=== PATIENT | female | born 1975 | race Caucasian/White ===

== ENCOUNTER 2017-12-29 17:14 | Emergency (ER) | payer SELFPAY ==
--- NOTE | 2017-12-29 17:23 | PDOC ---
Rapid Medical Evaluation Chief Complaint: Vaginal Bleeding Time Seen by Provider: 12/29/17 17:20 Medical Evaluation: Allergies Allergy/AdvReac Type Severity Reaction Status Date / Time No Known Allergies Allergy Verified 12/29/17 17:19 12/29/17 17:20 The patient presents with a chief complaint of: Vaginal bleeding and abdominal pain. 8 weeks . Bleeding started one hour ago. States the bleeding is light. States missed her afternoon bp meds. I have performed a brief in-person evaluation of this patient; Pertinent physical exam findings: ambulatory, in no respiratory distress. BP 170 /107 I have ordered the following: CBC, Type and screen UA, UC, beta hcg, transvaginal us The patient will proceed to the ED for further evaluation. 12/29/17 17:22
[2017-12-29 17:24] VITALS: BP 164/103; PULSE 85; TEMP 98.3; BMI 30.2
[2017-12-29 17:57] LABS: BASO % 0.3 % (0-2.0); EOS % 0.9 % (0-4.5); HEMATOCRIT 30.8 % (32.4-45.2); HEMOGLOBIN 9.9 GM/dL (10.7-15.3); LYMPH % 15.9 % (8-40); MCH 21.2 pg (25.7-33.7); MEAN CELL VOLUME 66.3 fl (80-96); MEAN PLT VOLUME 8.7 fl (7.5-11.1); MONO % 7.2 % (3.8-10.2); NEUT % 75.7 % (42.8-82.8); PLATELET COUNT 348 K/MM3 (134-434); RBC 4.65 M/mm3 (3.60-5.2); RDW 22.5 % (11.6-15.6); WHITE BLOOD COUNT 10.3 K/mm3 (4.0-10.0)
[2017-12-29 18:04] LABS: URINE APPEARANCE CLEAR; URINE BILIRUBIN NEGATIVE (<2.0 mg/dL); URINE BLOOD 3+ (NEGATIVE); URINE COLOR STRAW; URINE GLUCOSE (UA) NEGATIVE (NEGATIVE); URINE KETONE NEGATIVE (NEGATIVE); URINE LEUK ESTERASE NEGATIVE (NEGATIVE); URINE NITRITE NEGATIVE (NEGATIVE); URINE PROTEIN NEGATIVE (NEGATIVE); URINE UROBILINOGEN NEGATIVE mg/dL (0.2-1.0)
[2017-12-29 18:05] LABS: ADD RBC MORPHOLOGY YES
[2017-12-29 18:28] LABS: EPI CELLS RARE /HPF (FEW); URINE BACTERIA RARE /hpf (NONE SEEN)
[2017-12-29 18:51] LABS: ANISOCYTOSIS 2+
--- NOTE | 2017-12-29 20:32 | PDOC ---
History of Present Illness - General Chief Complaint: Vaginal Bleeding Stated Complaint: Vaginal Bleeding 2 MONTHS PREGNAT Time Seen by Provider: 12/29/17 17:20 History Source: Patient Exam Limitations: No Limitations - History of Present Illness Travel History: No Initial Comments: 12/29/17 20:50 Best Contact:[phone] Pmhx: HTN Pshx:N/A Allergies:NKDA 42-year-old female presents to the emergency department complaining of scant vaginal bleed with suprapubic cramping 3 days without fever, chills, nausea/vomiting, chest pain, shortness of breath, flank pain, abdominal discomfort, urinary symptoms: Frequency/urgency/hesitancy, hematuria. Patient states the cramping is described as 4/10 nonradiating intermittent cramping which is alleviated with Tylenol and there are no exacerbating factors. Patient states she is approximately 8 weeks gestation. LMP: 10/28/2017. Patient has not had an ultrasound for this nor has she seen care. Timing/Duration: reports: intermittent Past History - Past Medical History Allergies/Adverse Reactions: Allergies Allergy/AdvReac Type Severity Reaction Status Date / Time No Known Allergies Allergy Verified 12/29/17 17:19 COPD: No HTN: Yes - Suicide/Smoking/Psychosocial Hx Smoking History: Never smoked Have you smoked in the past 12 months: No Information on smoking cessation initiated: No Hx Alcohol Use: No Drug/Substance Use Hx: No Substance Use Type: None Review of Systems - Review of Systems Able to Perform ROS?: Yes Comments:: 12/29/17 20:53 CONSTITUTIONAL: Absent: fever, chills, diaphoresis, generalized weakness, malaise, loss of appetite HEENT: Absent: rhinorrhea, nasal congestion, throat pain, throat swelling, difficulty swallowing, mouth swelling, ear pain, eye pain, visual Changes CARDIOVASCULAR: Absent: chest pain, loss of consciousness, palpitations, irregular heart rate, peripheral edema RESPIRATORY: Absent: cough, shortness of breath, dyspnea with exertion, orthopnea, wheezing, stridor, hemoptysis GASTROINTESTINAL: +suprapubic cramping Absent: abdominal pain, abdominal distension, nausea, vomiting, diarrhea, constipation, melena, hematochezia GENITOURINARY: Absent: dysuria, frequency, urgency, hesitancy, hematuria, flank pain, genital pain MUSCULOSKELETAL: Absent: myalgia, arthralgia, joint swelling SKIN: Absent: rash, itching, pallor Is the patient limited Faroese proficient: No *Physical Exam - Vital Signs Last Vital Signs Temp Pulse Resp BP Pulse Ox 98.3 F 85 18 164/103 100 12/29/17 17:19 12/29/17 17:19 12/29/17 17:19 12/29/17 17:19 12/29/17 17:19 - Physical Exam Comments: 12/29/17 20:54 GENERAL: Well developed, well nourished. Awake and alert. No acute distress. HEENT: Normocephalic, atraumatic. PERRLA, EOMI. No conjunctival pallor. Sclera are non- icteric. Moist mucous membranes. Oropharynx is clear. NECK: Supple. Full ROM. No JVD. Carotid pulses 2+ and symmetric, without bruits. No thyromegaly. No lymphadenopathy. CARDIOVASCULAR: Regular rate and rhythm. No murmurs, rubs, or gallops. Distal pulses are 2+ and symmetric. PULMONARY: No evidence of respiratory distress. Lungs clear to auscultation bilaterally. No wheezing, rales or rhonchi. ABDOMINAL: Soft. Non-tender. Non-distended. No rebound or guarding. No organomegaly. Normoactive bowel sounds. MUSCULOSKELETAL Normal range of motion at all joints. No bony deformities or tenderness. No CVA tenderness. EXTREMITIES: No cyanosis. No clubbing. No edema. No calf tenderness. SKIN: Warm and dry. Normal capillary refill. No rashes. No jaundice. Pelvic: External genitalia normal without lesions. Vaginal vault +scant blood Cervix is long and closed. ED Treatment Course - LABORATORY CBC & Chemistry Diagram: 12/29/17 17:33 - ADDITIONAL ORDERS Additional order review: Laboratory Results 12/29/17 12/29/17 12/29/17 17:52 17:33 17:33 Beta HCG, Quant 48473.2 Urine Color Straw Urine Appearance Clear Urine pH 7.0 Ur Specific [place] 1.006 Urine Protein Negative Urine Glucose (UA) Negative Urine Ketones Negative Urine Blood 3+ H Urine Nitrite Negative Urine Bilirubin Negative Urine Urobilinogen Negative Ur Leukocyte Esterase Negative Urine WBC (Auto) 1 Urine RBC (Auto) 3 Ur Epithelial Cells Rare Urine Bacteria Rare Blood Type O POSITIVE Antibody Screen Negative 12/29/17 17:33 RBC 4.65 MCV 66.3 L MCHC 32.0 RDW 22.5 H MPV 8.7 Neutrophils % 75.7 Lymphocytes % 15.9 Monocytes % 7.2 Eosinophils % 0.9 Basophils % 0.3 Progress Note - Progress Note Progress Note: Translation by Dinorah/Antelope 2030hrs;Spoke to Dr. Thompson. Who is aware of the patient's transvaginal ultrasound report. Suggests patient follow-up at [address] [place] [address] on Monday. Informed to discuss Cytotec 200 g 3 times a day 4 days. 2053hrs: Dr. Cheek aware patient is not interested in taking Cytotec. Suggests patient follow-up on Monday at [address] [place] [address]. Patient understands to follow-up on Monday/January 01. Patient adamantly refuses Cytotec. *DC/Admit/Observation/Transfer Diagnosis at time of Disposition: Threatened miscarriage - Discharge Dispostion Disposition: HOME Condition at time of disposition: Stable Admit: No - Referrals Referrals: Mercedes Polk MD [Staff Physician] - - Patient Instructions Printed Discharge Instructions: DI for Threatened Additional Instructions: As per our conversation in the ER tonight: As per Dr. Thompson/Lumber Puller airline reservation agent [phone], FOLLOW UP AT THE CLINIC [address] [place] [address]/ [facility] ON MONDAY JANUARY 01, 2018 for a follow up. Increase fluids Pelvic rest Return to the ER for severe/persistent/worsening symptoms Print Language: FAROESE - Post Discharge Activity
--- NOTE | 2017-12-29 20:47 | PDOC ---
*Physical Exam - Vital Signs Last Vital Signs Temp Pulse Resp BP Pulse Ox 98.3 F 85 18 164/103 100 12/29/17 17:19 12/29/17 17:19 12/29/17 17:19 12/29/17 17:19 12/29/17 17:19 ED Treatment Course - LABORATORY CBC & Chemistry Diagram: 12/29/17 17:33 - ADDITIONAL ORDERS Additional order review: Laboratory Results 12/29/17 12/29/17 12/29/17 17:52 17:33 17:33 Beta HCG, Quant 13964.2 Urine Color Straw Urine Appearance Clear Urine pH 7.0 Ur Specific [place] 1.006 Urine Protein Negative Urine Glucose (UA) Negative Urine Ketones Negative Urine Blood 3+ H Urine Nitrite Negative Urine Bilirubin Negative Urine Urobilinogen Negative Ur Leukocyte Esterase Negative Urine WBC (Auto) 1 Urine RBC (Auto) 3 Ur Epithelial Cells Rare Urine Bacteria Rare Blood Type O POSITIVE Antibody Screen Negative 12/29/17 17:33 RBC 4.65 MCV 66.3 L MCHC 32.0 RDW 22.5 H MPV 8.7 Neutrophils % 75.7 Lymphocytes % 15.9 Monocytes % 7.2 Eosinophils % 0.9 Basophils % 0.3 Medical Decision Making - Medical Decision Making 12/29/17 20:47 Pt seen by the Advanced Practice Provider under my direct supervision Ancillary studies reviewed I agree with plan as outlined by the Advanced Practice Provider SMITH Arroyo *DC/Admit/Observation/Transfer Diagnosis at time of Disposition: Threatened miscarriage - Discharge Dispostion Disposition: HOME Condition at time of disposition: Stable - Referrals Referrals: Mercedes Polk MD [Staff Physician] - - Patient Instructions Printed Discharge Instructions: DI for Threatened Additional Instructions: As per our conversation in the ER tonight: As per Dr. Thompson/Early Childhood Education Instructor clearing distribution clerk [phone], FOLLOW UP AT THE CLINIC [address] ON MONDAY JANUARY 01, 2018 for a follow up. Increase fluids Pelvic rest Return to the ER for severe/persistent/worsening symptoms - Post Discharge Activity
== END 2017-12-29 20:55 | disposition home or self-care (01) ==
LOC: JER 17:14
DX: O26.891 Other specified pregnancy related conditions, first trimester (principal); O20.0 Threatened abortion; Z3A.08 8 weeks gestation of pregnancy
CPT/HCPCS: 36415; 76817-TC; 81003; 81015; 84702; 85025; 86850; 86900; 86901; 87077; 87086; 99282-25

== ENCOUNTER 2018-01-02 12:16 | Day surgery (SDC) | payer OTHER ==
[2018-01-02 13:21] LABS: BASO % 0.4 % (0-2.0); EOS % 1.5 % (0-4.5); HEMATOCRIT 29.5 % (32.4-45.2); HEMOGLOBIN 9.2 GM/dL (10.7-15.3); LYMPH % 20.8 % (8-40); MCH 20.9 pg (25.7-33.7); MCHC 31.1 g/dl (32.0-36.0); MEAN CELL VOLUME 67.3 fl (80-96); MEAN PLT VOLUME 8.7 fl (7.5-11.1); MONO % 5.9 % (3.8-10.2); NEUT % 71.4 % (42.8-82.8); PLATELET COUNT 285 K/MM3 (134-434); RBC 4.38 M/mm3 (3.60-5.2); RDW 23.1 % (11.6-15.6); WHITE BLOOD COUNT 6.9 K/mm3 (4.0-10.0)
[2018-01-02 13:35] LABS: INR 1.04 (0.82-1.09); PROTHROMBIN TIME (PATIENT) 11.8 SEC (9.98-11.88)
[2018-01-02 13:55] VITALS: BMI 26.4
[2018-01-02 14:28] LABS: ALBUMIN 3.2 g/dl (3.4-5.0); ANION GAP 8 (8-16); BILIRUBIN,TOTAL 0.2 mg/dL (0.2-1.0); BLOOD UREA NITROGEN 10 mg/dL (7-18); CHLORIDE 106 mmol/L (98-107); CO2 25 mmol/L (21-32); CREATININE 0.4 mg/dL (0.55-1.02); GLUCOSE,RANDOM 84 mg/dL (74-106); POTASSIUM 3.7 mmol/L (3.5-5.1); SGOT/AST 21 U/L (15-37); SGPT/ALT 19 U/L (12-78); SODIUM 139 mmol/L (136-145); TOT PROT 6.6 g/dl (6.4-8.2)
[2018-01-02 14:43] LABS: ALK PHOS 83 U/L (45-117)
[2018-01-02] MEDS ORDERED: PROPOFOL 20 ML ONE (16:04)
[2018-01-02] MEDS ORDERED: MIDAZOLAM HCL 2 MG/2 ML SINGLE DOSE VIAL ONE (16:04)
[2018-01-02] MEDS ORDERED: LIDOCAINE HCL/PF 2% SDV 5ML VIAL ONE (16:06)
[2018-01-02] MEDS ORDERED: DEXAMETHASONE SOD PHOSPHATE 4 MG/1 ML VIAL ONE (17:08)
[2018-01-02] MEDS ORDERED: ONDANSETRON 4 MG/2 ML VIAL ONE (17:08)
[2018-01-02] MEDS ORDERED: ACETAMINOPHEN 325 MG TABLET (FP) PO PRN (17:19)
[2018-01-02] MEDS ORDERED: oxyCODONE HCL 5 MG TABLET PO PRN (17:19)
[2018-01-02] MEDS ORDERED: IBUPROFEN 400 MG TABLET (FP) PO PRN (17:19)
[2018-01-02] MEDS ORDERED: ONDANSETRON 4 MG/2 ML VIAL IVPUSH PRN (17:21)
[2018-01-02] MEDS ORDERED: PROMETHAZINE HCL 25 MG/1 ML VIAL IVPUSH PRN (17:27)
--- NOTE | 2018-01-02 17:27 | HP ---
Past Medical History - Primary Care Physician PCP:: Mercedes Polk - Admission Chief Complaint: 42 yrs . 10 weeks gestation admitted for suction d&C due to 12/29/17 sono 7.2 weeks iugsac, yolk sca, with dodie ploe , no evidence FHMotion. Q uant [facility] [address].2 , blood type O Pos History of Present Illness: pt went to ER on 12/29/17 due to cramps , severe , was diagnosed pregn with 7.2 weeks demise . she had minimal bleeding . she continues to have cramps, sometimes severe . Reservations Specialist hx , pa MH 28-30 days , regular cycle, x 4-5 days bleeding contraception none std none History Source: Patient Limitations to Obtaining History: No Limitations - Past Medical History CLERK GUIDE: No: Migraine Cardiovascular: Yes: HTN (rx Mtoprolol 50 mg po bid Nifedipine 60 eR 1 tab daily). No: Murmur Pulmonary: No: Asthma Gastrointestinal: No: Constipation, Gastritis, Hemorrhoids Renal/: No: UTI ...: 3 ...Para: 1 ...Term: 1 (04/29/2000 8'4' [facility] hosp) ...: 1 (18 primary c/section 28 weeks , 2'8" , due to HTN ) ...Spon : 1 (current pregn , demise missed ab ) ...LMP: 10/21/17 ... Weeks Gestation by Dates: 10 (7.6 weeks by sono ) Heme/Onc: Yes: Anemia (iron deff anemia) Infectious Disease: No: STD's - Past Surgical History Past Surgical History: Yes: (02/14/2006 NCB) Hx Myomectomy: No Hx Transabdominal Cerclage: No - Smoking History Smoking history: Never smoked Have you smoked in the past 12 months: No - Alcohol/Substance Use Hx Alcohol Use: No History of Substance Use: reports: None - Social History History of Recent Travel: No Home Medications - Allergies Allergies/Adverse Reactions: Allergies Allergy/AdvReac Type Severity Reaction Status Date / Time No Known Allergies Allergy Verified 12/29/17 17:19 - Home Medications Home Medications: Ambulatory Orders Ferrous Sulfate [Feosol] 325 mg PO DAILY 04/03/18 Metoprolol Tartrate 50 mg PO DAILY 01/02/18 Nifedipine [Procardia Xl] 30 mg PO DAILY 01/02/18 Physical Exam - Maternity Vital Signs: Vital Signs Temperature 98.6 F 01/02/18 13:46 Pulse Rate 70 01/02/18 13:46 Respiratory Rate 16 01/02/18 13:46 Blood Pressure 144/100 01/02/18 13:46 O2 Sat by Pulse Oximetry (%) 100 01/02/18 13:46 Constitutional: Yes: Well Nourished, No Distress, Pallor Eyes: Yes: WNL HENT: Yes: WNL, Normocephalic Neck: Yes: WNL, Trachea Midline Cardiovascular: Yes: WNL, Regular Rate and Rhythm Lungs: Clear to auscultation Breast(s): Yes: WNL. 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 No: Calf Tenderness Edema: No Integumentary: Yes: Incision (old pfannensteil scar) Deep Tendon Reflex Grade: Normal +2 ...Motor Strength: WNL Psychiatric: Yes: WNL - Labs Lab Results: CBC, BMP 01/02/18 12:37 01/02/18 12:37 Laboratory Tests 01/02/18 12:37 Blood Type O POSITIVE Antibody Screen Negative Problem List - Problems (1) Missed Code(s): O02.1 - MISSED (2) 10 weeks gestation of Code(s): Z3A.10 - 10 WEEKS GESTATION OF (3) Chronic hypertension affecting Code(s): O10.919 - UNSP PRE-EXISTING HTN COMP , UNSP TRIMESTER (4) Iron deficiency anemia due to dietary causes Code(s): D50.8 - OTHER IRON DEFICIENCY ANEMIAS (5) AMA (advanced maternal age) multigravida 35+ Code(s): O09.529 - SUPERVISION OF ELDERLY MULTIGRAVIDA, UNSPECIFIED TRIMESTER Assessment/Plan 42 yrs , 10 weeks gestation , demise, htn , anemia , admitted for d &C suction
[2018-01-02] MEDS ORDERED: LACTATED RINGERS SOLUTION 1,000 ML IV SCH (17:30)
--- NOTE | 2018-01-02 17:45 | OP ---
Operative Note - Note: Operative Date: 01/02/18 Pre-Operative Diagnosis: missed ab 10 weeks Operation: dilatation suction curettage Findings: ut av 6 weeks size, uterocervical length 10 cm cx dilated to #10.#9 canula used adnexa store leader Surgeon: Mercedes Polk Anesthesiologist/IN FILE OPERATOR: Juan Crespo Anesthesia: General Specimens Removed: uterine contents Estimated Blood Loss (mls): 100 Fluid Volume Replaced (mls): 700 (pitocin 20 units in IV ) Operative Report Dictated: Yes
[2018-01-02 19:08] VITALS: BP 136/92; PULSE 87; TEMP 98.8
--- NOTE | 2018-01-02 23:11 | OP ---
DATE OF OPERATION: 01/02/2018 PREOPERATIVE DIAGNOSIS: Missed at 10 weeks. POSTOPERATIVE DIAGNOSIS: Missed at 10 weeks. OPERATION: Dilation and suction curettage. SURGEON: Mercedes Polk MD ANESTHESIOLOGIST: Zak Martinez MD ANESTHESIA: General. FINDINGS: A 42-year-old 3, para 1-1-1-2 with a history of a previous section for labor and one normal delivery. LMP was on October 2017. On December 29, she was diagnosed with demise. Sonogram shows 7.1 gestational sac with a yolk sac and pole with absent heart. Patient continues to have cramps and minimal bleeding. She is taken for the dilatation and suction curettage. Incidentally, the patient has a chronic hypertension and also anemia. PROCEDURE: Patient is taken to the operating room table and general anesthesia was given. The lithotomy position was given. The perineum and vagina were painted with betadine, draped in the usual manner. Pelvic examination was done. The uterus was anteverted and 8 weeks' size. Cervix was posterior. Adnexa was not palpable. Weighted speculum was put in. Anterior lip of the cervix was held with a single-toothed tenaculum. The uterocervical length was 10 cm. Cervix was dilated up to number 10 dilator. Then number 9 curved cannula was used and intrauterine contents were aspirated out until no more contents could be suctioned out. Then the uterine cavity was curetted and a gritty sensation was felt. The uterine cavity was clean. Bleeding was minimal. The procedure was completed. Estimated blood loss was 100 mL. She was transferred to the recovery room in stable condition. She was given IV Pitocin during the procedure. Her blood type is O+. Marlyn [id number]
--- NOTE | 2018-01-03 13:18 | EKG ---
Test Reason : Blood Pressure : / mmHG Vent. Rate : 062 BPM Atrial Rate : 062 BPM P-R Int : 180 ms QRS Dur : 078 ms QT Int : 468 ms P-R-T Axes : 018 006 020 degrees QTc Int : 475 ms NORMAL SINUS RHYTHM NORMAL ECG NO PREVIOUS ECGS AVAILABLE Confirmed by NUVIA CALLES MD ([id number]) on 01/03/2018 1:18:07 PM Referred By: Mercedes Polk Confirmed By:NUVIA CALLES MD
--- NOTE | 2018-01-05 08:58 | PATH ---
Surgical Pathology Report Patient Name: CHANTE PEOPLES Med. Rec. #: [id number] /Age/Gender: 1975 (Age: 42) / F Account: [id number] Location: [facility] Taken: 01/02/2018 Received: 01/03/2018 Reported: 01/05/2018 Physicians: Mercedes Polk M.D. Specimen(s) Received UTERINE CONTENTS Clinical History Missed Final Diagnosis UTERINE CONTENTS, EVACUATION: CHORIONIC VILLI CONSISTENT WITH PRODUCTS OF CONCEPTION. Electronically Signed Dariel Denton M.D. Gross Description Received in formalin labeled "uterine contents," is a 15.0 x 11.5 x 1.0 cm aggregate of red-brown soft tissue fragments admixed with blood clot. Villous tissue is identified. No definite somatic tissue is identified. A wholesale representative portion is submitted in one cassette. /01/03/201801/03/2018
== END 2018-01-02 19:08 | disposition home or self-care (01) ==
LOC: JASU-SURG 12:16
PROVIDERS: ATTEND Obstetrics & Gynecology
PROC: 10D17ZZ Extraction of Products of Conception, Retained, Via Natural or Artificial Opening (ICD-10-PCS; principal; 2018-01-02 16:00)
DX: O02.1 Missed abortion (principal); Z3A.10 10 weeks gestation of pregnancy
CPT/HCPCS: 36415; 80053; 84702; 85025; 85610; 86850; 86900; 86901; 88305-TC; 93005; 93010; 94760

== ENCOUNTER 2019-09-24 13:42 | Emergency (ER) | payer SELFPAY ==
--- NOTE | 2019-09-24 13:48 | PDOC ---
Rapid Medical Evaluation Medical Evaluation: Allergies Allergy/AdvReac Type Severity Reaction Status Date / Time No Known Allergies Allergy Verified 12/29/17 17:19 I have performed a brief in-person evaluation of this patient. The patient presents with a chief complaint of: 6 weeks , c/o abd pain and vaginal bleeding x 2 days (is spotting); ; patient is following with OB , Dr. Polk re: her Pertinent physical exam findings: In NAD, pelvic deferred I have ordered the following: Labs, pelvic US The patient will proceed to the ED for further evaluation. 09/24/19 13:48
[2019-09-24 13:51] VITALS: BMI 27.1
--- NOTE | 2019-09-24 14:19 | PDOC ---
History of Present Illness - General Chief Complaint: Vaginal Bleeding Stated Complaint: 6WKS /VAGINAL BLEEDING Time Seen by Provider: 09/24/19 13:48 History Source: Patient Exam Limitations: No Limitations - History of Present Illness Initial Comments: 09/24/19 15:07 44yF w PMHx HTN 6wk presenting w suprapubic pain and vaginal bleeding. Last 3d suprapubic pain, yesterday evening noted vaginal spotting w blood clots and pyuria. Didnt take any pain meds. Denies recent intercourse. Denies fever, cough, nausea/vomiting, chest pain, SOB, diarrhea/constipation. OBGYN Dr Polk Past History - Past Medical History Allergies/Adverse Reactions: Allergies Allergy/AdvReac Type Severity Reaction Status Date / Time No Known Allergies Allergy Verified 09/24/19 13:51 Home Medications: Ambulatory Orders Acetaminophen [Tylenol .Regular Strength -] 650 mg PO Q4H PRN tablet 01/02/18 Ferrous Sulfate [Feosol] 325 mg PO DAILY 01/02/18 Ibuprofen [Motrin -] 400 mg PO Q4H PRN tablet 01/02/18 Metoprolol Tartrate 50 mg PO DAILY 01/02/18 Nifedipine [Procardia Xl] 30 mg PO DAILY 01/02/18 Anemia: Yes Asthma: No Cancer: No Cardiac Disorders: No CVA: No COPD: No CHF: No Dementia: No Diabetes: No GI Disorders: No Disorders: No HTN: Yes Hypercholesterolemia: No Liver Disease: No Seizures: No Thyroid Disease: No - Surgical History Abdominal Surgery: No Appendectomy: No Cardiac Surgery: No Cholecystectomy: No Lung Surgery: No Neurologic Surgery: No - Psycho Social/Smoking Cessation Hx Smoking History: Never smoked Have you smoked in the past 12 months: No Hx Alcohol Use: No Drug/Substance Use Hx: No Substance Use Type: None Hx Substance Use Treatment: No Review of Systems - Review of Systems Constitutional: No: Chills, Fever HEENTM: No: Eye Pain, Nose Pain, Throat Pain, Mouth Pain Respiratory: No: Cough, Shortness of Breath Cardiac (ROS): No: Chest Pain, Palpitations, Syncope ABD/GI: No: Abdominal Distended, Constipated, Diarrhea, Nausea, Vomiting : Yes: Burning, Hematuria Musculoskeletal: No: Back Pain, Joint Pain Integumentary: No: Bruising, Flushing, Lesions Neurological: No: Headache, Seizure, Tingling Psychiatric: No: Anxiety, Depression Endocrine: No: Excessive Sweating, Flushing, Intolerance to Cold, Intolerance to Heat Hematologic/Lymphatic: Yes: Blood Clots. No: Easy Bleeding *Physical Exam - Vital Signs Last Vital Signs Temp Pulse Resp BP Pulse Ox 99 F 72 18 143/72 99 09/24/19 13:47 09/24/19 13:47 09/24/19 13:47 09/24/19 13:47 09/24/19 13:47 - Physical Exam General Appearance: Yes: Nourished, Appropriately Dressed. No: Apparent Distress HEENT: positive: EOMI, NUNU, Normal Voice, Hearing Grossly Normal. negative: Scleral Icterus (R), Scleral Icterus (L), Nasal Congestion, Rhinorrhea Respiratory/Chest: positive: Lungs Clear, Normal Breath Sounds. negative: Chest Tender, Respiratory Distress, Crackles, Rales, Rhonchi, Stridor, Wheezing Cardiovascular: positive: Regular Rhythm, Regular Rate, S1, S2. negative: Edema , Murmur Female Pelvic Exam: positive: cervical os closed. negative: CMT, discharge, adnexal tenderness, vaginal bleeding Gastrointestinal/Abdominal: positive: Normal Bowel Sounds, Tender (mild suprapubic), Flat, Soft. negative: Organomegaly Musculoskeletal: negative: CVA Tenderness (R), CVA Tenderness (L) Extremity: positive: Normal Capillary Refill Integumentary: positive: Normal Color. negative: Rash, Swelling Neurologic: positive: Fully Oriented, Alert, Normal Mood/Affect, Normal Response , Responsive. negative: Sensory Deficit, Confused, Disoriented ED Treatment Course - LABORATORY CBC & Chemistry Diagram: 09/24/19 14:20 09/24/19 14:20 Medical Decision Making - Medical Decision Making 09/24/19 15:06 Blood labs UA US pelvic exam - no gross bleeding, closed cervical os, no CMT/ovary tenderness --- 44yF w PMHx HTN 6wk presenting w suprapubic pain and vaginal bleeding. US shows viable IUP 6w4d, bradycardia HR 78, subchorionic bleed, probable 2.9cm leiomyoma. No evidence of UTI. HCG 27,000. Anemic Hgb 8. DC home w PCP/OBGYN f/u, return to ED 2d for HCG rechceck. Discharge - Discharge Information Problems reviewed: Yes Clinical Impression/Diagnosis: Threatened in first trimester Anemia affecting Qualifiers: Trimester: first trimester Qualified Code(s): O99.011 - Anemia complicating , first trimester Condition: Good Disposition: HOME - Admission No - Follow up/Referral Referrals: Mercedes Polk MD [Staff Physician] - - Patient Discharge Instructions Patient Printed Discharge Instructions: DI for Threatened Additional Instructions: You were seen for vaginal bleeding and pain. Your ultrasound shows that you have a viable . Please follow up with Dr Polk regarding your ultrasound You can take tylenol for pain. No heavy lifting Come back to the ED in 2 days to remeasure your hormone. Come back if you have worsening pain, bleeding, trouble breathing --- Usted fue visto por sangrado vaginal y dolor. Powell ultrasonido muestra que tiene un embarazo viable. Billy un seguimiento con el Dr. Polk con respecto a powell ultrasonido Puedes richie tylenol para el dolor. No levantar objetos pesados Regrese al servicio de urgencias en 2 cohen para volver a medir la hormona del embarazo. Regrese si tiene empeoramiento del dolor, sangrado, dificultad para respirar. Print Language: LEBANESE - Post Discharge Activity
[2019-09-24 14:41] LABS: BASO % 0.3 % (0-2.0); EOS % 1.9 % (0-4.5); HEMATOCRIT 25.6 % (32.4-45.2); LYMPH % 23.4 % (8-40); MCH 20.7 pg (25.7-33.7); MCHC 31.2 g/dl (32.0-36.0); MEAN CELL VOLUME 66.4 fl (80-96); MEAN PLT VOLUME 9.2 fl (7.5-11.1); MONO % 8.5 % (3.8-10.2); NEUT % 65.9 % (42.8-82.8); PLATELET COUNT 254 K/MM3 (134-434); RBC 3.86 M/mm3 (3.60-5.2); RDW 19.6 % (11.6-15.6); WHITE BLOOD COUNT 6.7 K/mm3 (4.0-10.0)
[2019-09-24] MEDS ORDERED: ACETAMINOPHEN 1000 MG/100 ML VIAL (NON FORMULARY) IVPB ONE (14:57)
[2019-09-24 15:01] LABS: ALBUMIN 3.3 g/dl (3.4-5.0); BILIRUBIN,TOTAL 0.5 mg/dL (0.2-1); CALCIUM 8.4 mg/dL (8.5-10.1); CREATININE 0.6 mg/dL (0.55-1.3); POTASSIUM 3.8 mmol/L (3.5-5.1); TOT PROT 6.5 g/dl (6.4-8.2)
[2019-09-24 15:22] LABS: EPI CELLS 9.3 /HPF (0-5/HPF); HYALINE CASTS 6 /lpf (0-8); PH,URINE 5.5 (5.0-8.0); URINE APPEARANCE CLOUDY; URINE BILIRUBIN NEGATIVE (NEGATIVE); URINE COLOR YELLOW; URINE GLUCOSE (UA) NEGATIVE (NEGATIVE); URINE KETONE NEGATIVE (NEGATIVE); URINE LEUK ESTERASE TRACE (NEGATIVE); URINE NITRITE NEGATIVE (NEGATIVE); URINE PROTEIN NEGATIVE (NEGATIVE); URINE RBC 2 /hpf (0-4); URINE UROBILINOGEN 0.2 mg/dL (0.2-1.0); URINE WBC 4 /hpf (0-5)
--- NOTE | 2019-09-24 15:23 | PDOC ---
Documentation entered by Margaret Pat SCRIBE, acting as scribe for Fabi Izquierdo DO. Fabi Izquierdo DO: This documentation has been prepared by the Bi andrade Brenda, SCRIBE, under my direction and personally reviewed by me in its entirety. I confirm that the documentation accurately reflects all work, treatment, procedures, and medical decision making performed by me. Attending Attestation - Resident Resident Name: Kurt Mckeon - ED Attending Attestation I have performed the following: I have examined & evaluated the patient, The case was reviewed & discussed with the resident, I agree w/resident's findings & plan, Exceptions are as noted - HPI HPI: 09/24/19 15:16 The patient is a 44 year old female () 6 weeks , with a significant PMH of HTN who presents to the emergency department with vaginal spotting for the past couple of days. Patient also endorses that her belly feels bigger than 6 weeks and feels hot when she pees. Patient endorses taking prenatals. The patient denies abdominal cramping, chest pain, shortness of breath, headache and dizziness. Denies fever, chills, nausea, vomiting, diarrhea and constipation. Denies dysuria, frequency, urgency. Allergies: NKA ANALYSIS INTERNSHIP: Dr Polk - Physicial Exam PE: 09/24/19 15:18 GENERAL: Awake, alert, and fully oriented, in no acute distress HEAD: No signs of trauma EYES: PERRLA, EOMI, sclera anicteric, conjunctiva clear ENT: Auricles normal inspection, hearing grossly normal, nares patent, oropharynx clear without exudates. Moist mucosa NECK: Normal ROM, supple, no lymphadenopathy, JVD, or masses LUNGS: Breath sounds equal, clear to auscultation bilaterally. No wheezes, and no crackles HEART: Regular rate and rhythm, normal S1 and S2, no murmurs, rubs or gallops ABDOMEN: (+) Nonpalpable uterus. (+) Lower quadrant is tender to palpation. Soft , normoactive bowel sounds. No guarding, no rebound. No masses EXTREMITIES: Normal range of motion, no edema. No clubbing or cyanosis. No cords, erythema, or tenderness NEUROLOGICAL: Cranial nerves II through XII grossly intact. Normal speech, normal gait SKIN: Warm, Dry, normal turgor, no rashes or lesions noted. - Medical Decision Making 09/24/19 15:20 I, Dr. Fabi Izquierdo, DO, attest that this document has been prepared under my direction and personally reviewed by me in its entirety. I further attest, that it accurately reflects all work, treatment, procedures and medical decision -making performed by me. a/p: 44yo with vaginal spotting since yesterday -denies vaginal trauma -c/o feeling heat when she urinates -os closed per resident and no adnexal ttp -labs sent from [facility] reviewed pt pending ultrasound 09/24/19 15:23 beta pending hgb 8 O+ type and screen 09/24/19 16:09 beta [id number] 09/24/19 16:59 IUP visualized on ultrasound- HR only 78, crl 6w4 days 09/24/19 17:41 small subchorionic bleed on ultrasound stable for dc to home and follow up with Dr. Pfeiffer and repeat beta in 2 days
[2019-09-24 15:33] LABS: URINE BACTERIA 101.9 /hpf (NEGATIVE)
[2019-09-24] MEDS ORDERED: ACETAMINOPHEN INJECTION 100 ML IVPB ONE (15:40)
[2019-09-24 17:52] VITALS: BP 145/90; PULSE 80; TEMP 98.3
== END 2019-09-24 18:02 | disposition home or self-care (01) ==
LOC: JER 13:42
PROC: 3E033NZ Introduction of Analgesics, Hypnotics, Sedatives into Peripheral Vein, Percutaneous Approach (ICD-10-PCS; principal; 2019-09-24)
DX: O26.891 Other specified pregnancy related conditions, first trimester (principal); O20.0 Threatened abortion; O99.011 Anemia complicating pregnancy, first trimester; O10.911 Unspecified pre-existing hypertension complicating pregnancy, first trimester; Z3A.01 Less than 8 weeks gestation of pregnancy
CPT/HCPCS: 36415; 76817-TC; 80053; 81003; 84702; 85025; 86850; 86900; 86901; 87086; 99282-25; J0131

== ENCOUNTER 2019-09-27 13:43 | Emergency (ER) | payer OTHER ==
[2019-09-27 14:08] VITALS: BP 145/85; PULSE 72; TEMP 98; BMI 26.9
--- NOTE | 2019-09-27 15:15 | PDOC ---
History of Present Illness - General Chief Complaint: Revisit, Lab Variance Stated Complaint: FOLLOW UP Time Seen by Provider: 09/27/19 15:13 History Source: Patient - History of Present Illness Initial Comments: 09/27/19 15:35 Chief complaint: Recheck of Patient 44-year-old female who was seen in the ER 3 days ago for early , 6 weeks, vaginal bleeding, who was found to have an IUP at 6 weeks with low heart rate. Patient has made an appointment with her INTERNATIONAL ACCOUNTANT for next week but came back here to get the 2-day check that she was told to do. Patient has no pain and is not bleeding. GENERAL/CONSTITUTIONAL: No fever, weakness. dizziness HEAD, EYES, EARS, NOSE AND THROAT: No change in vision. No ear pain or discharge. No sore throat. CARDIOVASCULAR: No chest pain RESPIRATORY: No shortness of breath or cough GASTROINTESTINAL: No pain, nausea, vomiting, diarrhea or constipation GENITOURINARY: No dysuria MUSCULOSKELETAL: No neck or back pain SKIN: No rash NEUROLOGIC: No headache, vertigo, loss of consciousness, or loss of sensation. GENERAL: The patient is awake, alert, and fully oriented, in no acute distress. HEAD: Normal with no signs of trauma. EYES: Pupils equal, round and reactive to light, sclera anicteric, conjunctiva clear. ENT: pharynx: no erythema, no exudate, uvula midline NECK: supple CHEST: clear, nontender, rr ABD: soft, nontender BACK: no tenderness or signs of injury EXTREMITIES: Normal range of motion, no edema. NEUROLOGICAL: Normal speech, normal gait. SKIN: Warm, Dry Past History - Past Medical History Allergies/Adverse Reactions: Allergies Allergy/AdvReac Type Severity Reaction Status Date / Time No Known Allergies Allergy Verified 09/27/19 14:08 Home Medications: Ambulatory Orders Acetaminophen [Tylenol .Regular Strength -] 650 mg PO Q4H PRN tablet 01/02/18 Ferrous Sulfate [Feosol] 325 mg PO DAILY 01/02/18 Ibuprofen [Motrin -] 400 mg PO Q4H PRN tablet 01/02/18 Metoprolol Tartrate 50 mg PO DAILY 01/02/18 Nifedipine [Procardia Xl] 30 mg PO DAILY 01/02/18 Anemia: Yes Asthma: No Cancer: No Cardiac Disorders: No CVA: No COPD: No CHF: No Dementia: No Diabetes: No GI Disorders: No Disorders: No HTN: Yes Hypercholesterolemia: No Liver Disease: No Seizures: No Thyroid Disease: No - Surgical History Abdominal Surgery: No Appendectomy: No Cardiac Surgery: No Cholecystectomy: No Lung Surgery: No Neurologic Surgery: No - Psycho Social/Smoking Cessation Hx Smoking History: Never smoked Have you smoked in the past 12 months: No Hx Alcohol Use: No Drug/Substance Use Hx: No Substance Use Type: None Hx Substance Use Treatment: No *Physical Exam - Vital Signs Last Vital Signs Temp Pulse Resp BP Pulse Ox 98 F 72 18 145/85 98 09/27/19 14:05 09/27/19 14:05 09/27/19 14:05 09/27/19 14:05 09/27/19 14:05 Medical Decision Making - Medical Decision Making 09/27/19 15:40 44-year-old female who was diagnosed with 6-week 3 days ago with vaginal bleeding, had low heart rate, IUP. Patient is back for recheck, does have an appointment with INTERNATIONAL ACCOUNTANT for next week. Patient will get quantitative hCG and ultrasound. Patient's blood type is O+. 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 This was all discussed with patient she understands that the is no longer viable. She has an appointment on Monday with her INTERNATIONAL ACCOUNTANT, she will be given copies of the ultrasounds and the blood test and she will call her doctor tomorrow. She knows she will start having cramping and bleeding and will miscarry Discussed issues, findings, results, applicable medications and treatments and follow-up. All these were understood and all questions were answered 09/27/19 18:43 Discharge - Discharge Information Problems reviewed: Yes Clinical Impression/Diagnosis: demise Condition: Stable Disposition: HOME - Admission No - Follow up/Referral Referrals: Dinorah Reyes MD [Primary Care Provider] - - Patient Discharge Instructions Patient Printed Discharge Instructions: DI for Miscarriage Additional Instructions: As discussed, the is no longer good and you will have a miscarriage. You will start having pain and bleeding. Make sure you call your doctor tomorrow to see if they will see you before Monday and explained to them that the ultrasound shows that the is no longer good and there is no heartbeat. In the meanwhile if you have severe pain or severe bleeding you may return to the emergency department [place] se discuti, el embarazo ya no es [place] y tendr un aborto espontneo. Comenzar a tener dolor y sangrado. Asegrese de llamar a pow[place] mdico maana para kenyetta si lo estuardo antes del kristina y explicarles que el ultrasonido muestra que el embarazo ya no es [place] y que no hay latidos cardacos. Mientras tanto, si tiene dolor intenso o sangrado intenso, puede regresar al departamento de emergencias - Post Discharge Activity
== END 2019-09-27 18:36 | disposition home or self-care (01) ==
LOC: JERFT 13:43
DX: O26.891 Other specified pregnancy related conditions, first trimester (principal); O02.1 Missed abortion; Z3A.01 Less than 8 weeks gestation of pregnancy
CPT/HCPCS: 36415; 76817-TC; 84702; 99281-25